=== PATIENT | male | born 1930 | race Caucasian/White ===

== ENCOUNTER → 2017-10-22 | Outpatient (CLI) | payer MEDICARE ==
--- NOTE | 2017-10-22 10:39 | Cardiology Report ---
DATE OF STUDY: ECHOCARDIOGRAM M-MODE: Dilated left atrium. Borderline left ventricular hypertrophy. Normal contractility. Normal mitral and aortic valves. No pericardial effusion. SECTOR SCAN: Dilated left atrium. Borderline left ventricular hypertrophy. Normal contractility. Ejection fraction is approximately 50%. Mitral, aortic and tricuspid valves are grossly normal. There is no pericardial effusion. CARDIAC DOPPLER STUDY WITH COLOR: One plus tricuspid and mitral regurgitation. CONCLUSIONS 1. Mild mitral regurgitation without definite mitral stenosis with mildly dilated left atrium. 2. Mild tricuspid regurgitation. 3. Borderline left ventricular hypertrophy with ejection fraction of 50%. Job#: [id number] RI cc:JACKSON CHURCH MD
== END ==
LOC: RAD 08:12
PROVIDERS: ATTEND Family Medicine
DX: I10 Essential (primary) hypertension (principal)
CPT/HCPCS: 93306